=== PATIENT | male | born 1960 | race Caucasian/White ===

== ENCOUNTER 2024-07-13 07:18 | Observation (INO) ==
[2024-07-13] MEDS: MoRPHine SULFATE 4 MG/ML 1 ML CARP\\VIAL IV STA (07:47)
[2024-07-13] MEDS: FAMOTIDINE 20MG IV PUSH 20 MG/5 ML SYR IV STA (07:48)
[2024-07-13] MEDS: SODIUM CHLORIDE 0.9% 1,000 ML IV ONE (07:48)
[2024-07-13] MEDS: ONDANSETRON INJ 2 MG/ML 2 ML VIAL IV STA (07:48)
--- NOTE | 2024-07-13 07:51 | Emergency Department Note ---
ED Provider Note History of Present Illness Chief Complaint: Abdominal Pain Stated Complaint: ABD AND BACK PAIN, VOMITING Time Seen by Provider: 07/13/24 07:29 64-year-old male who presents the emergency department with his with complaint of severe central upper belly pain radiating into his back. The patient reports that it is a sharp and stabbing pain, feeling like he broke his back. The patient reports that he woke up around 3 AM this morning with the symptoms. The patient reports that he had nausea, and self-induced vomiting without relief of his pain. The patient reports that the pain is constant in nature. He denies any sweatiness, chest pain or shortness of breath. The breathing does not worsen his discomfort. The patient denies any heart or lung history. He does report a history of kidney stones, but reports that this feels different. The patient currently rates his discomfort a 9 out of 10. The patient reports that [place] and stopped in [place] for an overnight stay. The patient reports that he did eat some sushi and ice cream last night. The patient does not think that this is food poisoning as he has had food poisoning in the past. The did not eat the same foods. Patient denies any alcohol consumption last night. He denies history of GERD. Patient denies any other recent uses of high-dose ibuprofen, or significant caffeine use. Home Medications Medication Instructions Recorded Confirmed Type Vitamin D3 2,000 units PO Q2D 07/13/24 07/13/24 History acetaminophen 500 mg tablet 500 mg PO Q6H PRN Pain/Fever 07/13/24 07/13/24 History losartan 50 mg tablet 50 mg PO DAILY 07/13/24 07/13/24 History Allergies Allergy/AdvReac Type Severity Reaction Status Date / Time ciprofloxacin [From Cipro] Allergy Rash Verified 07/13/24 07:47 Sulfa (Sulfonamide Allergy Muscle Pain Verified 07/13/24 07:47 Antibiotics) Past Med/Surg History Problem List (Updated 07/13/24 @ 14:13 by Chris Mckeon) Partial small bowel obstruction (Acute) Medical History History of sigmoidoscopy Basal cell carcinoma Kidney stones Hyperlipidemia Alpha thalassemia Surgical History History of nasal surgery Family History (Updated 07/13/24 @ 11:36 by Tonny Forrester MD) Father Hypertension Social History Smoking Status: Former smoker Tobacco Type: Cigarettes Hx Alcohol Use: Yes Alcohol type: beer Hx Substance Use: No Preferred Language: Slovak Family Consumer Scientist Required: No Beliefs That Will Affect Care: None marital status: Current Living Situation: Spouse Current Living Situation Comment: home with spouse. Feels Safe at Home: Yes Assistive Devices: Glasses Physical Exam Vital Signs Vital Signs - 24 hr 07/13/24 07:25 07/13/24 07:44 07/13/24 07:51 Temperature 36.4 C L Temperature Source Oral Pulse Rate 68 74 74 Pulse Rate from SpO2 Sensor 73 Respiratory Rate 20 18 18 Respiratory Effort / Characteristics Non-Labored Spontaneous Respiratory Depth Normal Respiratory Pattern Regular Blood Pressure 159/96 H 154/81 H Blood Pressure Mean 117 96 Pulse Oximetry 100 100 100 Oxygen Delivery Method Room Air Room Air Room Air Sepsis Recent Fever Within 48 Hours No Sepsis New/Unexplained Change in Mental Status N/A Sepsis Action Taken by Nursing No Action Required 07/13/24 07:54 07/13/24 08:07 07/13/24 08:09 Temperature Temperature Source Pulse Rate 82 74 73 Pulse Rate from SpO2 Sensor 83 73 Respiratory Rate 18 18 16 Respiratory Effort / Characteristics Respiratory Depth Respiratory Pattern Blood Pressure 141/87 H Blood Pressure Mean 118 Pulse Oximetry 100 100 100 Oxygen Delivery Method Room Air Room Air Room Air Sepsis Recent Fever Within 48 Hours Sepsis New/Unexplained Change in Mental Status Sepsis Action Taken by Nursing 07/13/24 08:14 07/13/24 08:17 07/13/24 08:18 Temperature Temperature Source Pulse Rate 75 69 Pulse Rate from SpO2 Sensor 68 Respiratory Rate 22 Respiratory Effort / Characteristics Respiratory Depth Respiratory Pattern Blood Pressure Blood Pressure Mean Pulse Oximetry 98 98 Oxygen Delivery Method Room Air Room Air Sepsis Recent Fever Within 48 Hours Sepsis New/Unexplained Change in Mental Status Sepsis Action Taken by Nursing 07/13/24 08:30 07/13/24 08:30 07/13/24 09:09 Temperature Temperature Source Pulse Rate 72 67 Pulse Rate from SpO2 Sensor 71 67 Respiratory Rate 16 15 Respiratory Effort / Characteristics Respiratory Depth Respiratory Pattern Blood Pressure 148/85 H 148/85 H Blood Pressure Mean 106 109 Pulse Oximetry 97 97 95 Oxygen Delivery Method Room Air Room Air Room Air Sepsis Recent Fever Within 48 Hours Sepsis New/Unexplained Change in Mental Status Sepsis Action Taken by Nursing 07/13/24 09:24 07/13/24 10:03 Temperature Temperature Source Pulse Rate 75 74 Pulse Rate from SpO2 Sensor 61 70 Respiratory Rate 15 13 Respiratory Effort / Characteristics Respiratory Depth Respiratory Pattern Blood Pressure 140/80 135/84 Blood Pressure Mean 100 101 Pulse Oximetry 94 94 Oxygen Delivery Method Room Air Room Air Sepsis Recent Fever Within 48 Hours Sepsis New/Unexplained Change in Mental Status Sepsis Action Taken by Nursing CONSTITUTIONAL: Healthy and well nourished. Alert and oriented X 3. Patient appears in moderately severe discomfort. HEENT: No scleral icterus or conjunctival injection. Mucous membranes are dry. NECK: Full active range of motion without discomfort. No JVD or carotid bruits. RESPIRATORY: Clear to auscultation bilaterally with no wheezing, crackles, rhonchi or stridor. CARDIOVASCULAR: Regular rate and rhythm with no murmurs, rubs or gallops. GASTROINTESTINAL: Bowel sounds present in all quadrants. Patient has mild focal epigastric tenderness to palpation. Negative Garcia sign. Negative CVA tenderness. No abdominal rigidity, guarding or rebound. MUSCULOSKELETAL: No tenderness to palpation through the central thoracic spine or paraspinous muscles. INTEGUMENTARY: No rash or other significant dermatologic conditions noted. HEMATOLOGIC: No ecchymosis or petechiae. PSYCHIATRIC: Positive affect. NEUROLOGIC: No focal neurologic deficits noted. Course Course Patient history and physical exam were performed. Nurses notes were reviewed. Vital signs are reviewed, showing an elevated blood pressure. IV access was established, and labs are drawn. The patient was hydrated with a liter normal saline, and administered IV morphine and Zofran for pain. An ECG was performed, showing sinus rhythm with sinus arrhythmia. No ST elevations or ischemic changes noted. The patient was placed on monitoring coordinator while in the emergency department. Further review of labs shows a mild leukocytosis. Coagulation studies are normal. CMP shows a mildly elevated random glucose, otherwise remaining labs are normal. Urinalysis does not show any hematuria or signs of infection. CT with IV contrast of the chest, abdomen and pelvis shows a partial small bowel obstruction, with dilatation of the ileum with appearance concerning for chronic inflammatory changes. Findings were discussed with the patient. The patient reported persistent pain, but refused any further analgesics. The case was then further discussed with Dr. Jones, ED attending physician, as well as the general surgeons PA on-call (Michelle). She indicated that this would be a nonsurgical management, and recommended hospitalist evaluation and admission, and they will consult on the patient. The case was then further discussed with the [facility] hospitalist, Dr. Forrester. Please see hospitalist and surgical dictations for further treatment and final disposition. Administered Medications Lactated Ringer's (Lr) 1,000 mls @ 125 mls/hr IV .Q8H IBRAHIMA Stop: 08/12/24 14:39 Last Admin: 07/13/24 15:11 Dose: 125 mls/hr Documented By: [id number] Discontinued Medications Sodium Chloride (Nss) 1,000 mls @ 999 mls/hr IV .Q1H1M ONE Stop: 07/13/24 08:41 Last Infusion: 07/13/24 08:49 Dose: Infused Documented By: Admin: 07/13/24 07:48 Dose: 999 mls/hr Documented By: WOLF Famotidine (Pepcid 20mg Iv Push) 20 mg in 5 mls @ 2.5 mls/min IV NOW STA Stop: 07/13/24 07:44 Last Admin: 07/13/24 07:48 Dose: 2.5 mls/min Documented By: WOLF Ioversol (Optiray 320 100ml) 94 ml IV ONCE ONE Stop: 07/13/24 08:13 Last Admin: 07/13/24 08:12 Dose: 94 ml Documented By: NELY Morphine Sulfate (Morphine Sulfate 4 Mg/Ml 1 Ml Carp\Vial) 4 mg IV NOW STA Stop: 07/13/24 07:42 Last Admin: 07/13/24 07:47 Dose: 4 mg Documented By: WOLF Ondansetron HCl (Ondansetron Inj 2 Mg/Ml 2 Ml Vial) 4 mg IV NOW STA Stop: 07/13/24 07:42 Last Admin: 07/13/24 07:48 Dose: 4 mg Documented By: WOLF Medical Decision Making Medical Records Attestation: I reviewed the patient's medical records. Home Medications was personally reviewed by me Laboratory Data Attestation: I reviewed the patient's lab results. 07/13/24 07:48 07/13/24 07:48 Lab Results 07/13/24 07/13/24 Range/Units 07:48 08:15 WBC 11.48 H (4.8-10.8) K/ul RBC 5.57 (4.70-6.10) M/uL Hgb 13.6 L (14.0-18.0) g/dl Hct 42.9 (42.0-52.0) % MCV 77.0 L (80.0-100.0) fL MCH 24.4 L (25.0-34.0) pg MCHC 31.7 L (32.0-36.0) g/dL RDW Std Deviation 40.4 (36.4-46.3) fL RDW Coeff of Elder 14.7 H (11.5-14.5) % Plt Count 245 (130-400) K/uL MPV 9.5 (9.4-12.4) fL Immature Gran % (Auto) 0.4 % Neut % (Auto) 76.8 % Lymph % (Auto) 13.6 % [place]ahan % (Auto) 6.1 % Eos % (Auto) 2.2 % Baso % (Auto) 0.9 % Neut # (Auto) 8.82 H (1.40-6.50) K/uL Lymph # (Auto) 1.56 (1.20-3.40) K/uL [place]ahan # (Auto) 0.70 H (0.11-0.59) K/uL Eos # (Auto) 0.25 (0.00-0.50) K/uL Baso # (Auto) 0.10 (0.00-0.20) K/uL Immature Gran # (Auto) 0.05 (0.01-0.20) K/uL PT 9.9 (9.0-12.0) Seconds INR 0.9 (0.9-1.1) Sodium 141 (136-145) mmol/L Potassium 4.1 (3.5-5.1) mmol/L Chloride 107 (98-107) mmol/L Carbon Dioxide 27 (21-32) mmol/L Anion Gap 7 (3-11) BUN 23 (6-23) mg/dl Creatinine 1.35 (0.6-1.4) mg/dl Est Cr Clr Drug Dosing 66.5 ml/min Est GFR ( Amer) 64.3 ml/min Est GFR (Non-Af Amer) 55.5 ml/min BUN/Creatinine Ratio 17.0 (10-20) Glucose 126 H (70-99(Fasting)) mg/dl Calcium 9.3 (8.6-10.3) mg/dl Total Bilirubin 0.3 (0.2-1.0) mg/dl AST 20 (13-39) U/L ALT 19 (7-52) U/L Alkaline Phosphatase 61 (34-104) U/L Troponin I High Sens 8.0 (0-20) pg/ml Total Protein 6.8 (6.0-8.3) gm/dl Albumin 4.4 (3.4-5.0) gm/dl Globulin 2.4 L (2.5-4.0) gm/dl Albumin/Globulin Ratio 1.8 (0.9-2) Lipase 47 (11-82) U/L Urine Color Yellow Urine Appearance Clear (Clear) Urine pH 5.5 (4.5-7.5) Ur Specific [place] 1.021 (1.000-1.030) Urine Protein Negative (Negative) Urine Glucose (UA) Negative (Negative) Urine Ketones Negative (Negative) Urine Blood Negative (Negative) Urine Nitrite Negative (Negative) Urine Bilirubin Negative (Negative) Urine Urobilinogen Negative (Negative) Ur Leukocyte Esterase Negative (Negative) Imaging Data Attestation: I personally reviewed and interpreted this imaging study as follows: My Impression: My interpretation of a CT with IV contrast of the chest does not show evidence for any pneumothorax, pericarditis or obvious vascular dissections. My interpretation of the CT with IV contrast of the abdomen and pelvis shows evidence for partial small bowel obstruction of the distal small bowel, with dilatation of the ileum, appearance of which is concerning for chronic inflammatory changes. Radiologist reports were also reviewed with concurrence. Radiologist's Impression: Chest CT 07/13/24 07:[address] WITH CONTRAST CT DOSE: 2291.19 mGy.cm HISTORY: Epigastric pain TECHNIQUE: Multiaxial CT images of the chest were performed following the intravenous administration of contrast. A dose lowering technique was utilized adhering to the principles of ALARA. COMPARISON: None. FINDINGS: The central airways are patent. No pneumothorax. No pleural effusions. No focal lung consolidations to suggest a pneumonia. No evidence for pulmonary edema. No acute fractures identified. The thyroid gland enhances normally. Mild circumferential thickening and mild adjacent fat stranding within the proximal to mid esophagus. This is best seen on image 46. This suggests a nonspecific esophagitis. The abdominal structures will be reported on the same day abdomen and pelvis CT. The heart is normal in size. No pericardial effusion. The main pulmonary arteries are patent. Normal caliber thoracic aorta with no evidence for a dissection. No mediastinal or hilar lymphadenopathy. There is a 4 mm nodule within the base the right lower lobe on image 193. There is a 3 mm nodule within the base of the left lower lobe on image 149. IMPRESSION: 1. Mild circumferential thickening and mild adjacent fat stranding within the proximal to mid esophagus. This likely represents a nonspecific mild esophagitis. 2. No focal lung consolidations to suggest a pneumonia. 3. The abdominal structures will be reported on the same day abdomen and pelvis CT. 4. A few subcentimeter pulmonary nodules within the lower lobes measure up to 4 mm. Please refer to below summary of Fleischner criteria recommendations for follow- up of incidental CT nodules (Kirill Blair, Guidelines for management of small pulmonary nodules detected on CT scans: A statement from the Fleischner Society, Radiology 237: [id number].) SOLID NODULES Solitary nodule size: <6 mm * Low risk patients: no follow-up needed * high risk patients: optional CT at 12 months Solitary nodule size: 6-8 mm * Low risk patients: follow-up at 6-12 months, then consider further follow-up at 18-24 months * high risk patients: initial follow-up CT at 6-12 months and then at 18-24 months if no change Solitary nodule size: >8 mm * either low or high risk patients - consider follow-up CT at 3 months, and/or CT-PET, and/or biopsy Multiple nodules size: <6 mm * Low risk patients: no routine follow-up * high risk patients: optional CT at 12 months Multiple nodules size: 6-8 mm * Low risk patients: follow-up at 3-6 months, then consider further follow-up at 18-24 months * high risk patients: follow-up at 3-6 months, then at 18-24 months if no change Multiple nodules size: >8 mm * Low risk patients: follow-up at 3-6 months, then consider further follow-up at 18-24 months * high risk patients: follow-up at 3-6 months, then at 18-24 months if no change Note: newly detected indeterminate nodule in persons 35 years of age or older. * Low risk patients: minimal or absent history of smoking and/or other known risk factors * high risk patients: history of smoking or of other known risk factors (e.g. first degree relative with lung cancer, or exposure to asbestos, radon, uranium) * if a nodule up to 8 mm is partly solid or is ground glass further follow-up is required after 24 months to exclude possible slow growing adenocarcinoma (RITA) SUBSOLID NODULES Solitary pure ground-glass nodule * nodule size <6 mm - no CT follow-up required * nodule size >=6 mm - follow-up CT at 6-12 months, then every 2 years until 5 years Solitary part-solid nodule * nodule size <6 mm - no CT follow-up required * nodule size >=6 mm - follow-up CT at 3-6 months. If unchanged, and solid component remains <6 mm, then annual follow-up for 5 years Multiple subsolid nodules * nodule size <6 mm - follow-up CT at 3-6 months, consider further follow-up at 2 and 4 years if stable * nodule size >=6 mm - follow-up CT at 3-6 months, subsequent management based on the most suspicious nodule(s) ACT 112: Negative or not required by law. Electronically signed by: Hadley Norton M.D. 07/13/2024 9:02 AM Abdomen/Pelvis CT 07/13/24 07:[address] WITH IV CONTRAST CT DOSE: HISTORY: Epigastric pain TECHNIQUE: Multiaxial CT images of the abdomen and pelvis were performed following the use of intravenous contrast. A dose lowering technique was utilized adhering to the principles of ALARA. COMPARISON STUDY: None. FINDINGS: The lung bases will be reported on the same day chest CT. No pneumoperitoneum. No pneumatosis. No acute fractures. The gallbladder is mildly distended. However, there is no gallbladder wall thickening. A 9 mm hypodense lesion within the left hepatic lobe is technically too small to characterize but favors a cyst. The main portal vein is patent. Pancreas, spleen, and adrenal glands are unremarkable. The kidneys enhance normally. No hydronephrosis. No retroperitoneal lymphadenopathy. There is a left retroaortic renal vein. Normal caliber abdominal aorta. No pelvic lymphadenopathy or pelvic free fluid. Mild bladder wall thickening is likely due to chronic outlet obstruction from the mildly enlarged prostate gland. Colonic diverticulosis. No evidence for acute diverticulitis. Normal appendix. Submucosal fat deposition with mild circumferential thickening and diffuse narrowing of the terminal ileum suggesting chronic inflammatory change. No surrounding fat stranding to suggest an acute process at this time. There is mild dilatation with stasis of the bowel contents within the distal ileal loops immediately proximal to this area of suspected narrowing within the terminal ileum. This is best seen on images 282 through 327. 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 No fistula or abscess identified at this time. IMPRESSION: 1. Submucosal fat deposition with mild circumferential thickening and diffuse narrowing of the terminal ileum suggesting chronic inflammatory change. No surrounding fat stranding to suggest an acute process at this time. 2. There is mild dilatation with stasis of the bowel contents within the distal ileal loop immediately proximal to this area of suspected narrowing within the terminal ileum. 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 3. Normal appendix. 4. Mildly distended gallbladder. No gallbladder wall thickening. 5. Colonic diverticulosis. No evidence for acute diverticular this. 6. Bladder wall thickening likely due to chronic outlet obstruction from the enlarged prostate gland. ACT 112: Negative or not required by law. Electronically signed by: Hadley Norton M.D. 07/13/2024 9:09 AM ECG Data Attestation: I personally reviewed and interpreted this ECG as follows: Indication: + abdominal pain, + back/shoulder pain, + nausea and + vomiting Rate (beats per minute): 67 Rhythm: + sinus with SA ECG Intervals/blocks: + Normal QRS, + Normal QT and + Normal AR ECG [place]: + Normal ECG ST segments: + Normal ST segments ECG Findings: + PVCs Comparison ECG Date: no prior available MDM Narrative Cardiac monitoring: An order was placed for continuous cardiac monitoring. The monitor shows a rate of 67 bpm with a sinus rhythm with sinus arrhythmia and single PVC. nuclear monitoring technician history was reviewed throughout the evaluation, and no dysrhythmias were noted. See ED Course section for further details of today's visit. The patient presents with complaint of abrupt onset of epigastric discomfort earlier this morning that has persisted. On his initial examination, I was most concerned for possible aortic dissection, and CT imaging of the chest, abdomen and pelvis were ordered and performed. Imaging showed evidence for a partial small bowel obstruction of the distal small bowel, with chronic appearing changes of the ileum. Patient does have a mild leukocytosis, however I do not suspect infectious etiologies. Patient lab work is not suggestive of pancreatitis, cholecystitis or hepatitis. ECG and troponin were also normal, therefore I do not suspect acute cardiac etiology. CT imaging also does not show evidence for pneumothorax, pneumonia or other concerning acute pulmonary etiologies. Given the patient's partial small bowel obstruction, I did discuss the case with our general surgeon, who indicated that this would be a nonsurgical management, and recommended hospitalist evaluation. I do feel that this is prudent given his symptoms and CT findings. Impression Partial small bowel obstruction Discharge Plan Visit Data Chief Complaint: Abdominal Pain Stated Complaint: ABD AND BACK PAIN, VOMITING ED Provider: Silas Jones ED Midlevel Provider: Chris Mckeon Discharge Problem: Partial small bowel obstruction Patient Disposition: Admitted As Inpatient Discharge Instructions Interventions: ED Discharge Assessment Last Done: 07/13/24 13:45
[2024-07-13 08:09] LABS: Basophils % (auto) 0.9 %; Eosinophils # (auto) 0.25 K/uL (0.00-0.50); Eosinophils % (auto) 2.2 %; Hematocrit (blood only) 42.9 % (42.0-52.0); Hemoglobin 13.6 g/dl (14.0-18.0); Immature Granulocytes # (auto) 0.05 K/uL (0.01-0.20); Immature Granulocytes % (auto) 0.4 %; Lymphocytes # (auto) 1.56 K/uL (1.20-3.40); Lymphocytes % (auto) 13.6 %; Mean Corpuscular Hemoglobin 24.4 pg (25.0-34.0); Mean Corpuscular Hgb Conc 31.7 g/dL (32.0-36.0); Mean Platelet Volume 9.5 fL (9.4-12.4); Monocytes % (auto) 6.1 %; Neutrophils # (auto) 8.82 K/uL (1.40-6.50); Neutrophils % (auto) 76.8 %; Platelet Count 245 K/uL (130-400); RDW Coefficient of Variation 14.7 % (11.5-14.5); RDW Standard Deviation 40.4 fL (36.4-46.3); Red Blood Count 5.57 M/uL (4.70-6.10); White Blood Count 11.48 K/ul (4.8-10.8)
[2024-07-13] MEDS: OPTIRAY 320 100ml IV ONE (08:12)
[2024-07-13 08:21] LABS: Albumin Globulin Ratio 1.8 (0.9-2); Albumin Level 4.4 gm/dl (3.4-5.0); Bilirubin,Total 0.3 mg/dl (0.2-1.0); Calcium 9.3 mg/dl (8.6-10.3); Creatinine Clr Calc Pharmacy 66.5 ml/min; Est GFR (African American) 64.3 ml/min; Est GFR (Non-African American) 55.5 ml/min; Globulin 2.4 gm/dl (2.5-4.0); Potassium 4.1 mmol/L (3.5-5.1); Total Protein 6.8 gm/dl (6.0-8.3)
[2024-07-13 08:29] LABS: Appearance Urine Clear (Clear); Bilirubin Urine Negative (Negative); Blood Urine Negative (Negative); Color Urine Yellow; Glucose Urine UA Negative (Negative); Ketones Urine Negative (Negative); Leukocyte Esterase Urine Negative (Negative); Nitrite Urine Negative (Negative); Protein Urine Negative (Negative); Specific Gravity Urine 1.021 (1.000-1.030); Urobilinogen Urine Negative (Negative); pH Urine 5.5 (4.5-7.5)
[2024-07-13 08:47] LABS: INR 0.9 (0.9-1.1); Prothrombin Time 9.9 Seconds (9.0-12.0)
--- NOTE | 2024-07-13 09:03 | Electrocardiogram Report ---
Test Reason : Blood Pressure : */* mmHG Vent. Rate : 67 BPM Atrial Rate : 67 BPM P-R Int : 146 ms QRS Dur : 88 ms QT Int : 388 ms P-R-T Axes : 59 42 46 degrees QTcB Int : 409 ms Sinus rhythm with sinus arrhythmia with occasional Premature ventricular complexes Otherwise normal ECG No previous ECGs available Confirmed by Justin Condon ([id number]) on 07/13/2024 9:03:04 AM Referred By: REFERRED SELF Confirmed By: Justin Condon
--- NOTE | 2024-07-13 09:04 | CT Scan Report ---
CHEST CT WITH CONTRAST CT DOSE: 2291.19 mGy.cm HISTORY: Epigastric pain TECHNIQUE: Multiaxial CT images of the chest were performed following the intravenous administration of contrast. A dose lowering technique was utilized adhering to the principles of ALARA. COMPARISON: None. FINDINGS: The central airways are patent. No pneumothorax. No pleural effusions. No focal lung consol idations to suggest a pneumonia. No evidence for pulmonary edema. No acute fractures identified. The thyroid gland enhances normally. Mild circumferential thickening and mild adjacent fat stranding with in the proximal to mid esophagus. This is best seen on image 46. This suggests a nonspecific esophagi tis. The abdominal structures will be reported on the same day abdomen and pelvis CT. The heart is no rmal in size. No pericardial effusion. The main pulmonary arteries are patent. Normal caliber thoraci c aorta with no evidence for a dissection. No mediastinal or hilar lymphadenopathy. There is a 4 mm n odule within the base the right lower lobe on image 193. There is a 3 mm nodule within the base of th e left lower lobe on image 149. IMPRESSION: 1. Mild circumferential thickening and mild adjacent fat stranding within the proximal to mid esophag us. This likely represents a nonspecific mild esophagitis. 2. No focal lung consolidations to suggest a pneumonia. 3. The abdominal structures will be reported on the same day abdomen and pelvis CT. 4. A few subcentimeter pulmonary nodules within the lower lobes measure up to 4 mm. Please refer to below summary of Fleischner criteria recommendations for follow-up of incidental CT n odules (Kirill Blair, Guidelines for management of small pulmonary nodules detected on CT scans: A sta tement from the Fleischner Society, Radiology 237: [phone].) SOLID NODULES Solitary nodule size: <6 mm * Low risk patients: no follow-up needed * high risk patients: optional CT at 12 months Solitary nodule size: 6-8 mm * Low risk patients: follow-up at 6-12 months, then consider further follow-up at 18-24 months * high risk patients: initial follow-up CT at 6-12 months and then at 18-24 months if no change Solitary nodule size: >8 mm * either low or high risk patients - consider follow-up CT at 3 months, and/or CT-PET, and/or biopsy Multiple nodules size: <6 mm * Low risk patients: no routine follow-up * high risk patients: optional CT at 12 months Multiple nodules size: 6-8 mm * Low risk patients: follow-up at 3-6 months, then consider further follow-up at 18-24 months * high risk patients: follow-up at 3-6 months, then at 18-24 months if no change Multiple nodules size: >8 mm * Low risk patients: follow-up at 3-6 months, then consider further follow-up at 18-24 months * high risk patients: follow-up at 3-6 months, then at 18-24 months if no change Note: newly detected indeterminate nodule in persons 35 years of age or older. * Low risk patients: minimal or absent history of smoking and/or other known risk factors * high risk patients: history of smoking or of other known risk factors (e.g. first degree relative with lung cancer, or exposure to asbestos, radon, uranium) * if a nodule up to 8 mm is partly solid or is ground glass further follow-up is required after 24 m onths to exclude possible slow growing adenocarcinoma (RITA) SUBSOLID NODULES Solitary pure ground-glass nodule * nodule size <6 mm - no CT follow-up required * nodule size >=6 mm - follow-up CT at 6-12 months, then every 2 years until 5 years Solitary part-solid nodule * nodule size <6 mm - no CT follow-up required * nodule size >=6 mm - follow-up CT at 3-6 months. If unchanged, and solid component remains <6 mm, then annual follow-up for 5 years Multiple subsolid nodules * nodule size <6 mm - follow-up CT at 3-6 months, consider further follow-up at 2 and 4 years if sta ble * nodule size >=6 mm - follow-up CT at 3-6 months, subsequent management based on the most suspiciou s nodule(s) ACT 112: Negative or not required by law. Electronically signed by: Hadley Norton M.D. 07/13/2024 9:02 AM
--- NOTE | 2024-07-13 09:11 | CT Scan Report ---
ABDOMEN AND PELVIS CT WITH IV CONTRAST CT DOSE: HISTORY: Epigastric pain TECHNIQUE: Multiaxial CT images of the abdomen and pelvis were performed following the use of intrave nous contrast. A dose lowering technique was utilized adhering to the principles of ALARA. COMPARISON STUDY: None. FINDINGS: The lung bases will be reported on the same day chest CT. No pneumoperitoneum. No pneumatos is. No acute fractures. The gallbladder is mildly distended. However, there is no gallbladder wall th ickening. A 9 mm hypodense lesion within the left hepatic lobe is technically too small to characteri ze but favors a cyst. The main portal vein is patent. Pancreas, spleen, and adrenal glands are unrema rkable. The kidneys enhance normally. No hydronephrosis. No retroperitoneal lymphadenopathy. There is a left retroaortic renal vein. Normal caliber abdominal aorta. No pelvic lymphadenopathy or pelvic f ree fluid. Mild bladder wall thickening is likely due to chronic outlet obstruction from the mildly e nlarged prostate gland. Colonic diverticulosis. No evidence for acute diverticulitis. Normal appendix . Submucosal fat deposition with mild circumferential thickening and diffuse narrowing of the termina l ileum suggesting chronic inflammatory change. No surrounding fat stranding to suggest an acute proc ess at this time. There is mild dilatation with stasis of the bowel contents within the distal ileal loops immediately proximal to this area of suspected narrowing within the terminal ileum. This is bes t seen on images 282 through 327. 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 No fistula or abscess i dentified at this time. IMPRESSION: 1. Submucosal fat deposition with mild circumferential thickening and diffuse narrowing of the termin al ileum suggesting chronic inflammatory change. No surrounding fat stranding to suggest an acute pro cess at this time. 2. There is mild dilatation with stasis of the bowel contents within the distal ileal loop immediatel y proximal to this area of suspected narrowing within the terminal ileum. 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 3. Normal appendix. 4. Mildly distended gallbladder. No gallbladder wall thickening. 5. Colonic diverticulosis. No evidence for acute diverticular this. 6. Bladder wall thickening likely due to chronic outlet obstruction from the enlarged prostate gland. ACT 112: Negative or not required by law. Electronically signed by: Hadley Norton M.D. 07/13/2024 9:09 AM
--- NOTE | 2024-07-13 09:41 | History & Physical Report ---
Date of Service July 13, 2024 Assessment & Plan (1) Partial small bowel obstruction: Plan: Partial small bowel obstruction No known history of bowel obstruction in the past, abdominal surgeries Last colonoscopy> 15 years ago--normal per patient Last BM: Small loose bowel movement today morning --CT ABD:Submucosal fat deposition with mild circumferential thickening and diffuse narrowing of the terminal ileum suggesting chronic inflammatory change. No surrounding fat stranding to suggest an acute process at this time. There is mild dilatation with stasis of the bowel contents within the distal ileal loop immediately proximal to this area of suspected narrowing within the terminal ileum. 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 Normal appendix. Mildly distended gallbladder. No gallbladder wall thickening. Colonic diverticulosis. No evidence for acute diverticular this. Bladder wall thickening likely due to chronic outlet obstruc tion from the enlarged prostate gland. --NPO for for now IV fluids, Pain control, antiemetics Surgery consulted KUB in AM Will consider NG tube placement if develops nausea, vomiting again Mild leukocytosis likely reactive Will need colonoscopy eventually as outpatient Esophagitis Incidental finding on CT Previously on Prilosec PRN, currently not on meds Started on IV Protonix Advised to get EGD as outpatient Pulmonary nodules --CT: No focal lung consolidations to suggest a pneumonia. The abdominal structures will be reported on the same day abdomen and pelvis CT. A few subcentimeter pulmonary nodules within the lower lobes measure up to 4 mm. --H/O smoking in the past --Follow-up as outpatient Hyperglycemia Check HbA1c Hypertension Hold losartan IV Vasotec as needed Monitor BP Other chronic conditions Vitamin D deficiency Basal cell carcinoma S/P surgery Possible BPH: Bladder scan as needed Resume home medications as able DVT Px: Lovenox SQ CODE STATUS Full code History of Present Illness Chief Complaint: Abdominal Pain Primary Care Provider: NO PCP Patient is a 64-year-old male with history of hypertension, vitamin D deficiency, basal cell carcinoma and other medical problems who presents with history of abdominal pain associated with nausea, chills. Patient states having [employer] sandwich and milkshake yesterday afternoon and later went to a [employer] restaurant and ate sushi roll and had Ramez ice cream and started to feel abdominal fullness. At around 3 AM this morning patient had significant abdominal pain epigastric in location, radiates to the back, sharp to dull in quality, 8/10 intensity. Reports that he had forced himself to have an emesis and later had a small loose nonbloody bowel movement. Given persistent abdominal pain, patient came to ED for further evaluation. He admits to have ongoing headache after having a sinus infection 2 weeks ago and has been using Tylenol to help with headache. His last colonoscopy was more than 15 years ago which was normal per patient. He denies any history of abdominal surgeries or prior bowel obstruction in the past. Also denies any history of chest pain, dyspnea, dizziness, cough, fever, chills, dysuria, hematuria. Patient is on a traveling trip currently and believes that he has not been hydrating well. Allergies Allergy/AdvReac Type Severity Reaction Status Date / Time ciprofloxacin [From Cipro] Allergy Rash Verified 07/13/24 07:47 Sulfa (Sulfonamide Allergy Muscle Pain Verified 07/13/24 07:47 Antibiotics) Home Medications Medication Instructions Recorded Confirmed Type Vitamin D3 2,000 units PO Q2D 07/13/24 07/13/24 History acetaminophen 500 mg tablet 500 mg PO Q6H PRN Pain/Fever 07/13/24 07/13/24 History losartan 50 mg tablet 50 mg PO DAILY 07/13/24 07/13/24 History Past Med/Surg History Problem List (Updated 07/13/24 @ 11:24 by Tonny Forrester MD) Partial small bowel obstruction Medical History History of sigmoidoscopy Basal cell carcinoma Kidney stones Hyperlipidemia Alpha thalassemia Surgical History History of nasal surgery Family History (Updated 07/13/24 @ 11:35 by Tonny Forrester MD) Father Hypertension Social History Smoking Status: Former smoker Tobacco Type: Cigarettes marital status: Current Living Situation: Spouse Feels Safe at Home: Yes Review of Systems Review of Systems: All systems reviewed & are unremarkable except as noted in Subjective Physical Exam Physical Exam: Physical Exam: Vitals signs as noted above General Appearance:Moderately built and nourished, no apparent distress Head: normocephalic, Atraumatic Eyes: normal inspection, EOMI Neck: supple, Trachea midline Respiratory/Chest: Normal breath sounds, CTA, No accessory muscle use Cardiovascular: S1, S2, No murmur Abdomen/GI:Soft, Epigastric tender, decreased Bowel sounds Extremities/Musculoskeletal:normal inspection, no edema Neurologic/Psych:AAOX3, grossly no focal neurological deficits Skin: normal color, warm Results & Data Results & Data Vital Signs (Past 12 Hours) Vital Signs Temp Pulse Resp BP Pulse Ox O2 Del Method 07/13/24 08:30 72 16 148/85 H 97 Room Air 07/13/24 08:18 69 22 98 Room Air 07/13/24 08:17 75 07/13/24 08:14 98 Room Air 07/13/24 08:09 73 16 100 Room Air 07/13/24 08:07 74 18 141/87 H 100 Room Air 07/13/24 07:54 82 18 100 Room Air 07/13/24 07:51 74 18 100 Room Air 07/13/24 07:44 74 18 154/81 H 100 Room Air 07/13/24 07:25 36.4 C L 68 20 159/96 H 100 Room Air Laboratory Results Short CBC 07/13/24 Range/Units 07:48 WBC 11.48 H (4.8-10.8) K/ul Hgb 13.6 L (14.0-18.0) g/dl Hct 42.9 (42.0-52.0) % Plt Count 245 (130-400) K/uL BMP 07/13/24 07:48 Sodium 141 Potassium 4.1 Chloride 107 Carbon Dioxide 27 BUN 23 Creatinine 1.35 Glucose 126 H Calcium 9.3 Liver Function 07/13/24 Range/Units 07:48 Total Bilirubin 0.3 (0.2-1.0) mg/dl AST 20 (13-39) U/L ALT 19 (7-52) U/L Alkaline Phosphatase 61 (34-104) U/L Albumin 4.4 (3.4-5.0) gm/dl Urine 07/13/24 Range/Units 08:15 Urine Color Yellow Urine Appearance Clear (Clear) Urine pH 5.5 (4.5-7.5) Ur Specific [place] 1.021 (1.000-1.030) Urine Protein Negative (Negative) Urine Glucose (UA) Negative (Negative) Diagnostic Findings --CT ABD: Submucosal fat deposition with mild circumferential thickening and diffuse narrowing of the terminal ileum suggesting chronic inflammatory change. No surrounding fat stranding to suggest an acute process at this time. There is mild dilatation with stasis of the bowel contents within the distal ileal loop immediately proximal to this area of suspected narrowing within the terminal ileum. 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 Normal appendix. Mildly distended gallbladder. No gallbladder wall thickening. Colonic diverticulosis. No evidence for acute diverticular this. Bladder wall thickening likely due to chronic outlet obstruction from the enlarged prostate gland. --CT Chest: Mild circumferential thickening and mild adjacent fat stranding within the proximal to mid esophagus. This likely represents a nonspecific mild esophagitis. No focal lung consolidations to suggest a pneumonia. The abdominal structures will be reported on the same day abdomen and pelvis CT. A few subcentimeter pulmonary nodules within the lower lobes measure up to 4 mm. ECG Additional Comments: --EKG: Sinus rhythm with sinus arrhythmia with occasional PVCs, QTc 409
--- NOTE | 2024-07-13 14:07 | Surgery Consultation ---
Date of Consultation July 13, 2024 Assessment & Plan (1) Partial small bowel obstruction: pt feeling much better already. really wants to leave but is willing to stay. no urgent indications for surgical intervention. will try full liquids. if he does ok with no recurrence of his symptoms he could be discharged tomorrow and f/u with his PCP. (2) Alpha thalassemia: History of Present Illness History of Present Illness Mr. Mart is a very pleasant 64-year-old male who was passing through on vacation from [place] on his way to [place]. Last night after dinner he had a little bit of GI upset. He was awakened in the middle the night with rather severe mid abdominal pain. He presented to the emergency room where workup reveals a leukocytosis as well as distal small bowel narrowing/partial small bowel obstruction. He has never had abdominal surgery and has no history of inflammatory bowel disease so the etiology is unclear. He has been in his normal state of good health prior to this. Allergies Allergy/AdvReac Type Severity Reaction Status Date / Time ciprofloxacin [From Cipro] Allergy Rash Verified 07/13/24 07:47 Sulfa (Sulfonamide Allergy Muscle Pain Verified 07/13/24 07:47 Antibiotics) Home Medications Medication Instructions Recorded Confirmed Type Vitamin D3 2,000 units PO Q2D 07/13/24 07/13/24 History acetaminophen 500 mg tablet 500 mg PO Q6H PRN Pain/Fever 07/13/24 07/13/24 History losartan 50 mg tablet 50 mg PO DAILY 07/13/24 07/13/24 History Patient History Medical History History of sigmoidoscopy Basal cell carcinoma Kidney stones Hyperlipidemia Alpha thalassemia Surgical History History of nasal surgery Family History (Updated 07/13/24 @ 11:36 by Tonny Forrester MD) Father Hypertension Social History Smoking Status: Former smoker Tobacco Type: Cigarettes marital status: Current Living Situation: Spouse Feels Safe at Home: Yes Review of Systems Review of Systems: All systems reviewed & are unremarkable except as noted in HPI & below Physical Exam Constitutional: WD/WN, vitals as above no acute distress and not ill appearing Eyes: PERRL, conjunctivae normal, anicteric sclerae EOM intact bilaterally ENMT: external ear and nose normal, oropharynx normal Ears: no hearing impairment Neck: trachea midline, no thyromegaly Respiratory: normal respiratory effort; no respiratory distress and does not use accessory muscles Cardiovascular: Rate/Rhythm: regular rate and regular rhythm Gastrointestinal (Abdomen): Soft. Very mild distention. Very mild tenderness in the right lower quadrant. No guarding. No palpable abnormalities Skin: no rashes, warm and dry Psychiatric: Orientation: alert, oriented x 3 and cooperative Results & Data Vital Signs (Past 12 Hours) Vital Signs Temp Pulse Resp BP Pulse Ox O2 Del Method 07/13/24 13:18 67 21 95 07/13/24 13:00 128/89 07/13/24 12:57 65 17 91 07/13/24 12:48 65 14 93 07/13/24 12:36 68 14 93 07/13/24 12:30 133/83 07/13/24 12:23 124/71 07/13/24 12:09 61 18 97 07/13/24 12:03 79 13 92 07/13/24 12:00 128/80 07/13/24 11:48 84 19 07/13/24 11:39 71 17 95 07/13/24 11:18 58 L 16 97 07/13/24 11:00 70 17 97 07/13/24 11:00 148/80 H 07/13/24 10:54 82 15 92 07/13/24 10:42 70 17 96 07/13/24 10:33 68 19 97 07/13/24 10:30 119/83 07/13/24 10:09 82 16 88 L 07/13/24 10:03 74 13 135/84 94 Room Air 07/13/24 09:24 75 15 140/80 94 Room Air 07/13/24 09:09 67 15 95 Room Air 07/13/24 08:30 148/85 H 97 Room Air 07/13/24 08:30 72 16 148/85 H 97 Room Air 07/13/24 08:18 69 22 98 Room Air 07/13/24 08:17 75 07/13/24 08:14 98 Room Air 07/13/24 08:09 73 16 100 Room Air 07/13/24 08:07 74 18 141/87 H 100 Room Air 07/13/24 07:54 82 18 100 Room Air 07/13/24 07:51 74 18 100 Room Air 07/13/24 07:44 74 18 154/81 H 100 Room Air 07/13/24 07:25 36.4 C L 68 20 159/96 H 100 Room Air PG Care Time/CCT Total # of Minutes Spent Total Time Spent with Patient: Total time spent is greater than 50% in coordination of care (as documented) at patient's floor/unit and/or counseling patient: Coding Level of Care Code 94419 IN/OBS CONSULT LVL 3,45M Diagnoses Partial small bowel obstruction K56.600 Alpha thalassemia D56.0
[2024-07-13] MEDS ORDERED: MoRPHine SULFATE 2 MG/ML CARP IV PRN (14:40)
[2024-07-13] MEDS ORDERED: ENALAPRILAT 0.625 MG in SYRINGE 9.5 ML IV PRN (14:40)
[2024-07-13] MEDS ORDERED: ACETAMINOPHEN 1,000 MG/100 ML VIAL IV PRN (14:40)
[2024-07-13] MEDS ORDERED: ONDANSETRON INJ 2 MG/ML 2 ML VIAL IV PRN (14:40)
[2024-07-13] MEDS: LACTATED RINGER'S 1,000 ML IV SCH (15:11)
[2024-07-13] MEDS: PANTOprazole 40 MG in SYRINGE 0 ML IV SCH (16:44)
--- NOTE | 2024-07-14 05:18 | Surgery Progress Note ---
Date of Service July 14, 2024 Assessment & Plan (1) Partial small bowel obstruction: Plan: The patient has been admitted on the hospitalist service. From surgery perspective we recommend the following: Continue current diet with consideration be given to advancing further if his abdominal exam remains benign Continue IV fluids until certain oral intake is reliable KUB has been ordered for this morning which is pending Check a.m. labs when available Encourage ambulation Lovenox is in place for DVT prevention as above. ok for discharge from surgery perspective. no surgical intervention indicated. should f/u with pcp at home Admission and Anticipated Discharge Date Admission Date: July 13, 2024 Subjective Patient is resting comfortably in bed. He notes that over the past 24 hours he has had a bowel movement. He denies any abdominal pain. He notes he has tolerated full liquids without exacerbating any abdominal pain. He denies any nausea or vomiting Physical Exam Gastrointestinal (Abdomen): Abdomen is soft, nondistended, and nontender to palpation. There is no rebound tenderness or guarding Results & Data Vital Signs (Past 12 Hours) Vital Signs Temp Pulse Resp BP Pulse Ox O2 Del Method 07/13/24 20:16 37.1 C 61 18 112/69 94 Room Air PG Care Time/CCT Total # of Minutes Spent Total Time Spent with Patient: Total time spent is greater than 50% in coordination of care (as documented) at patient's floor/unit and/or counseling patient: Coding Level of Care Code 82210 SUB INP/OBS CARE 25MIN Diagnoses Partial small bowel obstruction K56.600
[2024-07-14 06:34] LABS: Hematocrit (blood only) 36.1 % (42.0-52.0); Hemoglobin 11.4 g/dl (14.0-18.0); Mean Corpuscular Hemoglobin 24.5 pg (25.0-34.0); Mean Corpuscular Hgb Conc 31.6 g/dL (32.0-36.0); Mean Corpuscular Volume 77.6 fL (80.0-100.0); Mean Platelet Volume 10.1 fL (9.4-12.4); Platelet Count 171 K/uL (130-400); RDW Coefficient of Variation 14.7 % (11.5-14.5); RDW Standard Deviation 41.2 fL (36.4-46.3); Red Blood Count 4.65 M/uL (4.70-6.10); White Blood Count 7.36 K/ul (4.8-10.8)
[2024-07-14 07:20] LABS: Calcium 8.1 mg/dl (8.6-10.3); Potassium 4.1 mmol/L (3.5-5.1)
[2024-07-14 07:26] LABS: Est GFR (Non-African American) 62.1 ml/min
[2024-07-14 07:49] LABS: Magnesium 1.7 mg/dl (1.7-2.4)
[2024-07-14 07:55] LABS: Estimated Average Glucose 128 mg/dl; Hemoglobin A1C 6.1 % (4.5-5.6)
[2024-07-14] MEDS: ENOXAPARIN INJ 40 MG/0.4 ML SYR SQ SCH (08:16)
--- NOTE | 2024-07-14 08:53 | XRay Report ---
KUB HISTORY: Acute generalized abdominal pain SBO COMPARISON: CT 07/13/2024 FINDINGS: The bowel gas pattern appears nonobstructive. No renal calculi. No ureteral calculi. No pn eumoperitoneum or pneumatosis. No fracture. IMPRESSION: Nonobstructive bowel gas pattern. The borderline dilated loop of ileum described on yesterday's CT is not visualized by radiography. ACT 112: Negative or not required by law. The above report was generated using voice recognition software. It may contain grammatical, syntax o r spelling errors. Electronically signed by: Frank Garcia M.D. 07/14/2024 8:52 AM
--- NOTE | 2024-07-14 10:55 | Discharge Summary ---
Discharge Summary Date of Service July 14, 2024 Principal Dx & Hospital Course #1 = Principal Diagnosis (1) Partial small bowel obstruction: Plan Patient is a 64-year-old male with history of hypertension, vitamin D deficiency, basal cell carcinoma who presented with abdominal pain associated with nausea, chills. Partial small bowel obstruction No known history of bowel obstruction in the past, abdominal surgeries Last colonoscopy> 15 years ago--normal per patient Last BM: Small loose bowel movement today morning --CT ABD:Submucosal fat deposition with mild circumferential thickening and diffuse narrowing of the terminal ileum suggesting chronic inflammatory change. No surrounding fat stranding to suggest an acute process at this time. There is mild dilatation with stasis of the bowel contents within the distal ileal loop immediately proximal to this area of suspected narrowing within the terminal ileum. 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 Normal appendix. Mildly distended gallbladder. No gallbladder wall thickening. Colonic diverticulosis. No evidence for acute diverticular this. Bladder wall thickening likely due to chronic outlet obstruction from the enlarged prostate gland. Was initially NPO but then transitioned to clear liquids. Has been tolerating up until discharge. Given IV fluids, Pain control, antiemetics Pt's symptoms improved significantly with bowel movement overnight. Requesting discharge due to long drive home. KUB in the AM noted improvement of the SBO. General Surgery was consulted, recommended/stated the following on day of discharge: "Patient is resting comfortably in bed. He notes that over the past 24 hours he has had a bowel movement. He denies any abdominal pain. He notes he has tolerated full liquids without exacerbating any abdominal pain. He denies any nausea or vomiting... ok for discharge from surgery perspective. no surgical intervention indicated. should f/u with pcp at home" Did not need NG tube placement Mild leukocytosis likely reactive Will need colonoscopy as outpatient- PCP followup Close PCP and GI followup after discharge. Esophagitis Incidental finding on Chest CT Previously on Prilosec PRN, currently not on meds Started on IV Protonix Advised to get EGD as outpatient Prescribed pantoprazole for discharge with pcp follow up. Pulmonary nodules --CT: No focal lung consolidations to suggest a pneumonia. The abdominal structures will be reported on the same day abdomen and pelvis CT. A few subcentimeter pulmonary nodules within the lower lobes measure up to 4 mm. H/O smoking in the past PCP Follow-up as outpatient Prediabetes HbA1c of 6.1 PCP follow up Hypertension Hold losartan IV Vasotec as needed Monitor BP Other chronic conditions Vitamin D deficiency Basal cell carcinoma S/P surgery Possible BPH: Bladder scan as needed. PCP follow up Resume home medications as able Notes For Next Care Provider Please ensure followup of imaging findings (esophagitis, BPH, pulmonary nodules, etc) noted in reports below Please ensure followup for colonoscopy Medication Changes From Visit pantoprazole 40mg daily Admission HPI Per Admitting Provider Patient is a 64-year-old male with history of hypertension, vitamin D deficiency, basal cell carcinoma and other medical problems who presents with history of abdominal pain associated with nausea, chills. Patient states having [employer] sandwich and milkshake yesterday afternoon and later went to a [employer] restaurant and ate sushi roll and had Ramez ice cream and started to feel abdominal fullness. At around 3 AM this morning patient had significant abdominal pain epigastric in location, radiates to the back, sharp to dull in quality, 8/10 intensity. Reports that he had forced himself to have an emesis and later had a small loose nonbloody bowel movement. Given persistent abdominal pain, patient came to ED for further evaluation. He admits to have ongoing headache after having a sinus infection 2 weeks ago and has been using Tylenol to help with headache. His last colonoscopy was more than 15 years ago which was normal per patient. He denies any history of abdominal surgeries or prior bowel obstruction in the past. Also denies any history of chest pain, dyspnea, dizziness, cough, fever, chills, dysuria, hematuria. Patient is on a traveling trip currently and believes that he has not been hydrating well. Admission Exam Per Admitting Provider General Appearance:Moderately built and nourished, no apparent distress Head: normocephalic, Atraumatic Eyes: normal inspection, EOMI Neck: supple, Trachea midline Respiratory/Chest: Normal breath sounds, CTA, No accessory muscle use Cardiovascular: S1, S2, No murmur Abdomen/GI:Soft, Epigastric tender, decreased Bowel sounds Extremities/Musculoskeletal:normal inspection, no edema Neurologic/Psych:AAOX3, grossly no focal neurological deficits Skin: normal color, warm Discharge Exam General: Alert, oriented. No acute distress Skin: No noted rashes or bruises Psych: Appropriate mood and affect Neuro: No gross deficits HEENT: NC/AT CV: RRR Resp: Breath sounds clear bilaterally, no increased effort of breathing. Abdomen: Soft, nontender, nondistended Extremities: No edema in lower extremities bilaterally. Updated Medication List Medication Instructions Recorded Confirmed Type Vitamin D3 2,000 units PO Q2D 07/13/24 07/13/24 History acetaminophen 500 mg tablet 500 mg PO Q6H PRN Pain/Fever 07/13/24 07/13/24 History losartan 50 mg tablet 50 mg PO DAILY 07/13/24 07/13/24 History pantoprazole 40 mg tablet,delayed 40 mg PO DAILY #30 tabs 07/14/24 Rx release Hospital Stay Data Consultations 07/13/24 10:03 Consult General Surgery Routine Diagnostic Imagining Performed 07/13/24 07:41 CT chest with contrast [CT chest diagnostic w con] Stat 07/13/24 07:42 CT abd pelvis IV con only Stat Chest CT 07/13/24 07:[address] WITH CONTRAST CT DOSE: 2291.19 mGy.cm HISTORY: Epigastric pain TECHNIQUE: Multiaxial CT images of the chest were performed following the intravenous administration of contrast. A dose lowering technique was utilized adhering to the principles of ALARA. COMPARISON: None. FINDINGS: The central airways are patent. No pneumothorax. No pleural effusions. No focal lung consolidations to suggest a pneumonia. No evidence for pulmonary edema. No acute fractures identified. The thyroid gland enhances normally. Mild circumferential thickening and mild adjacent fat stranding within the proximal to mid esophagus. This is best seen on image 46. This suggests a nonspecific esophagitis. The abdominal structures will be reported on the same day abdomen and pelvis CT. The heart is normal in size. No pericardial effusion. The main pulmonary arteries are patent. Normal caliber thoracic aorta with no evidence for a dissection. No mediastinal or hilar lymphadenopathy. There is a 4 mm nodule within the base the right lower lobe on image 193. There is a 3 mm nodule within the base of the left lower lobe on image 149. IMPRESSION: 1. Mild circumferential thickening and mild adjacent fat stranding within the proximal to mid esophagus. This likely represents a nonspecific mild esophagitis. 2. No focal lung consolidations to suggest a pneumonia. 3. The abdominal structures will be reported on the same day abdomen and pelvis CT. 4. A few subcentimeter pulmonary nodules within the lower lobes measure up to 4 mm. Please refer to below summary of Fleischner criteria recommendations for follow- up of incidental CT nodules (Kirill Blair, Guidelines for management of small pulmonary nodules detected on CT scans: A statement from the Fleischner Society, Radiology 237: [phone].) SOLID NODULES Solitary nodule size: <6 mm * Low risk patients: no follow-up needed * high risk patients: optional CT at 12 months Solitary nodule size: 6-8 mm * Low risk patients: follow-up at 6-12 months, then consider further follow-up at 18-24 months * high risk patients: initial follow-up CT at 6-12 months and then at 18-24 months if no change Solitary nodule size: >8 mm * either low or high risk patients - consider follow-up CT at 3 months, and/or CT-PET, and/or biopsy Multiple nodules size: <6 mm * Low risk patients: no routine follow-up * high risk patients: optional CT at 12 months Multiple nodules size: 6-8 mm * Low risk patients: follow-up at 3-6 months, then consider further follow-up at 18-24 months * high risk patients: follow-up at 3-6 months, then at 18-24 months if no change Multiple nodules size: >8 mm * Low risk patients: follow-up at 3-6 months, then consider further follow-up at 18-24 months * high risk patients: follow-up at 3-6 months, then at 18-24 months if no change Note: newly detected indeterminate nodule in persons 35 years of age or older. * Low risk patients: minimal or absent history of smoking and/or other known risk factors * high risk patients: history of smoking or of other known risk factors (e.g. first degree relative with lung cancer, or exposure to asbestos, radon, uranium) * if a nodule up to 8 mm is partly solid or is ground glass further follow-up is required after 24 months to exclude possible slow growing adenocarcinoma (RITA) SUBSOLID NODULES Solitary pure ground-glass nodule * nodule size <6 mm - no CT follow-up required * nodule size >=6 mm - follow-up CT at 6-12 months, then every 2 years until 5 years Solitary part-solid nodule * nodule size <6 mm - no CT follow-up required * nodule size >=6 mm - follow-up CT at 3-6 months. If unchanged, and solid component remains <6 mm, then annual follow-up for 5 years Multiple subsolid nodules * nodule size <6 mm - follow-up CT at 3-6 months, consider further follow-up at 2 and 4 years if stable * nodule size >=6 mm - follow-up CT at 3-6 months, subsequent management based on the most suspicious nodule(s) ACT 112: Negative or not required by law. Electronically signed by: Hadley Norton M.D. 07/13/2024 9:02 AM Abdomen/Pelvis CT 07/13/24 07:[address] WITH IV CONTRAST CT DOSE: HISTORY: Epigastric pain TECHNIQUE: Multiaxial CT images of the abdomen and pelvis were performed following the use of intravenous contrast. A dose lowering technique was utilized adhering to the principles of ALARA. COMPARISON STUDY: None. FINDINGS: The lung bases will be reported on the same day chest CT. No pneumoperitoneum. No pneumatosis. No acute fractures. The gallbladder is mildly distended. However, there is no gallbladder wall thickening. A 9 mm hypodense lesion within the left hepatic lobe is technically too small to characterize but favors a cyst. The main portal vein is patent. Pancreas, spleen, and adrenal glands are unremarkable. The kidneys enhance normally. No hydronephrosis. No retroperitoneal lymphadenopathy. There is a left retroaortic renal vein. Normal caliber abdominal aorta. No pelvic lymphadenopathy or pelvic free fluid. Mild bladder wall thickening is likely due to chronic outlet obstruction from the mi ldly enlarged prostate gland. Colonic diverticulosis. No evidence for acute diverticulitis. Normal appendix. Submucosal fat deposition with mild circumferential thickening and diffuse narrowing of the terminal ileum suggesting chronic inflammatory change. No surrounding fat stranding to suggest an acute process at this time. There is mild dilatation with stasis of the bowel contents within the distal ileal loops immediately proximal to this area of suspected narrowing within the terminal ileum. This is best seen on images 282 through 327. 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 No fistula or abscess identified at this time. IMPRESSION: 1. Submucosal fat deposition with mild circumferential thickening and diffuse narrowing of the terminal ileum suggesting chronic inflammatory change. No surrounding fat stranding to suggest an acute process at this time. 2. There is mild dilatation with stasis of the bowel contents within the distal ileal loop immediately proximal to this area of suspected narrowing within the terminal ileum. 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 3. Normal appendix. 4. Mildly distended gallbladder. No gallbladder wall thickening. 5. Colonic diverticulosis. No evidence for acute diverticular this. 6. Bladder wall thickening likely due to chronic outlet obstruction from the enlarged prostate gland. ACT 112: Negative or not required by law. Electronically signed by: Hadley Norton M.D. 07/13/2024 9:09 AM KUB X-Ray 07/14/24 07:00 KUB HISTORY: Acute generalized abdominal pain SBO COMPARISON: CT 07/13/2024 FINDINGS: The bowel gas pattern appears nonobstructive. No renal calculi. No ureteral calculi. No pneumoperitoneum or pneumatosis. No fracture. IMPRESSION: Nonobstructive bowel gas pattern. The borderline dilated loop of ileum described on yesterday's CT is not visualized by radiography. ACT 112: Negative or not required by law. The above report was generated using voice recognition software. It may contain grammatical, syntax or spelling errors. Electronically signed by: Frank Garcia M.D. 07/14/2024 8:52 AM Discharge Instructions Given to Patient (Per Discharging Provider) [place], [place] were admitted and treated for a partial small bowel obstruction. You were seen by the General Surgeon who recommends discharge home as you have been tolerating a diet, having bowel movements and your symptoms have resolved. We noted that you had some esophagitis and prescribed you the medication pantoprazole to help with that. Please take it as prescribed and follow up with your primary care provider. It is very important that you follow up with your primary care provider about this when you get home. It is very likely that you will need a procedure such as a colonoscopy for further evaluation. Continue to advance your diet as tolerated. Again, Please keep close follow up with your primary care provider after discharge. Please do not hesitate to go to the emergency room if your symptoms worsen or return. It was a pleasure taking care of you while you were here. Total Time Total Time Spent Total Time Spent (In Minutes): 75
== END 2024-07-14 11:44 | disposition home or self-care (01) | DRG 390 ==
LOC: ED 07:18 → SUATTDRO 10:04 → INTOOBSV 10:04 → 3N 10:04